=== PATIENT | female | born 1950 | race Caucasian/White ===

== ENCOUNTER 2017-10-19 16:57 | Inpatient (IN) | payer MEDICARE, BC ==
[~2017-10-19] VITALS: Ht 175.3 cm; Wt 79.4 kg
[2017-10-19] MEDS ORDERED: IBUPROFEN 600 MG TABLET PO ONE ×2 (17:11→17:30)
[2017-10-19] MEDS ORDERED: ACETAMINOPHEN ES 500 MG TABLET ONE (17:11)
[2017-10-19] MEDS ORDERED: ACETAMINOPHEN ES 500 MG TABLET PO ONE (17:30)
[2017-10-19] MEDS ORDERED: MORPHINE SULFATE INJ 2 MG/ML DISP.SYRIN IV ONE (17:30)
[2017-10-19] MEDS ORDERED: IV NS 0.9% 1,000 ML BAG IV ONE ×3 (17:30→21:00)
[2017-10-19] MEDS ORDERED: ONDANSETRON HCL/PF 4 MG/2 ML VIAL IV ONE (17:30)
[2017-10-19] MEDS ORDERED: FOLI1TAB16 PO (17:34)
[2017-10-19] MEDS ORDERED: ROPI0.5T PO (17:34)
[2017-10-19] MEDS ORDERED: FURO-144 PO (17:34)
[2017-10-19] MEDS ORDERED: ETAN50DI2 SQ (17:34)
[2017-10-19] MEDS ORDERED: CYCL30DR EACHEYE (17:34)
[2017-10-19] MEDS ORDERED: LEFL10TA PO (17:34)
[2017-10-19] MEDS ORDERED: AMLO5TAB2 PO (17:34)
[2017-10-19] MEDS ORDERED: FENT1PAT6 TD (17:34)
[2017-10-19] MEDS ORDERED: IBUP-1955 PO (17:34)
[2017-10-19] MEDS ORDERED: PROG100C15 PO (17:34)
[2017-10-19] MEDS ORDERED: CITA40TA11 PO (17:34)
[2017-10-19] MEDS ORDERED: ATOR40TA PO (17:34)
[2017-10-19] MEDS ORDERED: ERGO500014 PO (17:34)
[2017-10-19] MEDS ORDERED: OMEP20TA5 PO (17:34)
[2017-10-19] MEDS ORDERED: VALS80TA2 PO (17:34)
[2017-10-19] MEDS ORDERED: OXYC-133 PO (17:34)
[2017-10-19] MEDS ORDERED: TOPI25TA PO (17:34)
[2017-10-19] MEDS ORDERED: VENL150C2 PO (17:34)
[2017-10-19] MEDS ORDERED: ESTR0.623 PO (17:34)
[2017-10-19] MEDS ORDERED: BUPR-96 PO (17:34)
[2017-10-19] MEDS ORDERED: POTA10CA43 PO (17:34)
--- NOTE | 2017-10-19 17:40 | NUR ---
US TECH AT BS.
[2017-10-19 17:43] LABS: HEMATOCRIT 31 % (33-45); HEMOGLOBIN 9.6 g/dL (11.5-14.8); LYMPHOCYTES # (AUTO) 0.5 /CMM (0.8-4.8); LYMPHOCYTES % (AUTO) 2.7 % (20.0-44.0); MEAN CORPUSCULAR HEMOGLOBIN 24 PG (26.0-33.0); MEAN CORPUSCULAR HGB CONC 31 g/dl (31.0-36.0); MEAN CORPUSCULAR VOLUME 76 fL (82-100); MONOCYTES % (AUTO) 5.8 % (2.0-12.0); NEUTROPHILS % (AUTO) 91.5 % (43.0-81.0); PLATELET COUNT (AUTO) 457 /CMM (150-450); RDW COEFFICIENT OF VARIATION 19.2 (11.5-15.0); RED BLOOD CELL COUNT(AUTO) 4.04 MIL/uL (4.0-5.2); WHITE BLOOD COUNT (AUTO) 17.5 K/uL (4.3-11.0)
[2017-10-19 17:52] LABS: CALCIUM, SERUM 8.9 mg/dL (8.5-10.1); CARBON DIOXIDE 29 mmol/L (21-32); CHLORIDE 97 mmol/L (98-107); GLUCOSE 117 mg/dL (74-106); POTASSIUM 3.9 mmol/L (3.5-5.1); SODIUM SERUM 133 mmol/L (136-145); UREA NITROGEN, BLOOD 15 mg/dL (7-18)
[2017-10-19 18:00] LABS: TROPONIN I < 0.017 ng/mL (0.00-0.056)
[2017-10-19 18:01] LABS: INR 1.07 (0.87-1.13)
[2017-10-19 18:04] LABS: LYMPHOCYTES % (MANUAL) 3 % (16-48); MONOCYTES % (MANUAL) 6 % (0-11.0); NEUTROPHILS % (MANUAL) 91 (42-76)
[2017-10-19 18:05] LABS: ALANINE AMINOTRANSFERASE 14 U/L (12-78); ALBUMIN 2.8 g/dL (3.4-5.0); ALKALINE PHOSPHATASE 147 U/L (46-116); ASPARTATE AMINOTRANSFERASE 20 U/L (15-37); B-TYPE NATRIURETIC PEPTIDE 4346 PG/ML (0-125); BILIRUBIN,DIRECT 0.2 mg/dL (0.0-0.2); BILIRUBIN,TOTAL 0.5 mg/dL (0.2-1.0); TOTAL PROTEIN, SERUM 7.5 g/dL (6.4-8.2)
[2017-10-19] MEDS ORDERED: PIPERACILLIN /TAZOBACTAM 3.375 G in IV D5W 50 ML IV ONE (18:30)
--- NOTE | 2017-10-19 18:33 | NUR ---
HILARY FROM HOME FOR LETHARGIC ON MULTIPLE PAIN MEDS. SEEN BY MD FOR EVAL. VSS. NOTED BLE SWELLING. PT AAOX3. IV ACCESS ENAMEL PULVERIZER. SAFETY AND COMFORT MEASURES PROVIDED. WILL MONITOR.
[2017-10-19 18:47] LABS: BILIRUBIN,URINE Negative (NEGATIVE); BLOOD, URINE Large Ery/uL (NEGATIVE); COLOR,URINE Yellow (YELLOW); KETONES,URINE Trace (NEGATIVE); LEUKOCYTE ESTERASE ,URINE Large (NEGATIVE); NITRITE, URINE Positive (NEGATIVE); PH,URINE 5.5 (5.0-8.0); PROTEIN,URINE 100 mg/dl (NEGATIVE); UGLUCOSE Negative (NEGATIVE)
[2017-10-19 18:52] LABS: APPEARANCE,URINE SLIGHTLY CLOUDY (CLEAR)
[2017-10-19 19:00] LABS: BACTERIA,URINE Many /HPF (None Seen); RBC,URINE 21-50 /HPF (0-2); SQUAMOUS EPITHELIAL CELL,UR Few /HPF (None Seen); WBC,URINE TOO NUMEROUS TO COUN /HPF (0-3)
[2017-10-19] MEDS ORDERED: FUROSEMIDE 40 MG/4 ML VIAL IV ONE (19:30)
[2017-10-19] MEDS ORDERED: ropiniROLE 0.5 MG TABLET PO SCH (19:30)
[2017-10-19] MEDS ORDERED: FUROSEMIDE 40 MG/4 ML VIAL ONE (19:45)
[2017-10-19] MEDS ORDERED: Medication Not On Formulary EA (Etanercept (Enbrel) 50 MG) SQ SCH (20:00)
[2017-10-19] MEDS ORDERED: IV NS 0.9% 1,000 ML IV SCH ×2 (20:00→20:15)
[2017-10-19] MEDS ORDERED: FENTANYL TD PATCH (50 MCG/HR) 50 MCG/HR PATCH.TD72 TD SCH ×2 (20:00→23:00)
[2017-10-19] MEDS ORDERED: ONDANSETRON HCL/PF 4 MG/2 ML VIAL IVP PRN ×2 (20:00→20:15)
[2017-10-19] MEDS ORDERED: ERGOCALCIFEROL (VITAMIN D 2) 50,000 UNIT CAPSULE PO SCH ×2 (20:00→20:15)
[2017-10-19] MEDS ORDERED: LEVOFLOXACIN 750 MG /D5W 150ML 150 ML IV SCH (20:00)
[2017-10-19] MEDS ORDERED: MORPHINE SULFATE INJ 2 MG/ML DISP.SYRIN IV PRN ×2 (20:00→20:15)
[2017-10-19] MEDS ORDERED: ACETAMINOPHEN 325 MG TABLET PO PRN (20:00)
[2017-10-19 20:40] LABS: IRON, SERUM 14 ug/dl (50-175); TOTAL IRON BINDING CAPACITY 256 ug/dl (250-450)
--- NOTE | 2017-10-19 21:21 | NUR ---
PLUG ASSEMBLER NOTES RECEIVED PT ON FROM ER NURSE ELADIO PARNELL. ON ROOM AIR, NO RESPIRATORY DISTRESS NOTED. PT IS A/OX4 WITH SPOUSE AT BEDSIDE. ON TELE MONITOR SR 75. IV ACCESS ON LEFT HAND G18 PATENT AND INTACT. SKIN CHECK DONE AND PROVIDED DRESSING. VITAL SIGNS STABLE. PT ORIENTED . WILL CONTINUE TO MONITOR PT CLOSELY.
[2017-10-19 21:23] VITALS: BP 122/55
--- NOTE | 2017-10-19 22:45 | NUR ---
SAFETY MANAGER NOTES PER FARIBA MASCORRO. START FENTANYL PATCH TODAY, FOR TWO DAYS THEN DC AFTER. THEN RESUME THE PREVIOUS DOSING.
--- NOTE | 2017-10-19 23:00 | NUR ---
COOKING CASING AND DRYING SUPERVISOR NOTES PER FARIBA MASCORRO D/C NS BOLUS 500ML SINCE PT HAD ONE LITER OF NS BOLUS IN ER. WILL CONTINUE TO MONITOR PT CLOSELY.
--- NOTE | 2017-10-19 23:19 | NUR ---
TANK BUILDER SUPERVISOR NOTES STILL WAITING FOR THE PHARMACIST TO VERIFY LEVOFLOXACIN
[2017-10-19] MEDS ORDERED: LEVOFLOXACIN 750 MG /D5W 150ML 150 ML IV ONE (23:45)
[2017-10-20] VITALS (7 sets, daily range): BP systolic 101–134; BP diastolic 60–71
--- NOTE | 2017-10-20 00:55 | NUR ---
INSPECTOR COLD WORKING NOTES CALLED FARIBA MASCORRO FOR PT HR OF 124 AND PT COMPLAINTS OF RESTLESS LEG SYNDROME. FARIBA MASCORRO ORDERED REQUIP 0.5MG ONE DOSE.
[2017-10-20] MEDS ORDERED: ropiniROLE 0.5 MG TABLET PO ONE (01:00)
[2017-10-20] MEDS ORDERED: MORPHINE SULFATE INJ 4 MG/ML DISP.SYRIN ONE (01:13)
--- NOTE | 2017-10-20 02:35 | NUR ---
WHEEL INSPECTOR NOTES PT GIVEN COLD COMPRESS FOR LEG PAIN.
[2017-10-20] MEDS: ACETAMINOPHEN 325 MG TABLET PO PRN (04:17)
--- NOTE | 2017-10-20 05:01 | NUR ---
REPAIR WEAVER NOTES PT HAD TEMP OF 100.5, TYLENOL AND COOLING MEASURES GIVEN. TEMPT WENT DOWN TO 100.1. FARIBA MASCORRO INFORMED. NO NEW ORDERS. WILL CONTINUE TO MONITOR PT CLOSELY.
--- NOTE | 2017-10-20 06:29 | NUR ---
EMERGENCY MEDICAL TECHNICIAN CLOSING NOTES NO ACUTE CHANGES NOTED DURING THE SHIFT, PROVIDED COMFORT AND SAFETY. TEMPT BEEN TRENDING DOWN. COOLING MEASURES DOWN. WILL ENDORSE TO THE AM NURSE FOR CONTINUITY OF CARE.
[2017-10-20] MEDS ORDERED: Medication Not On Formulary EA (Omeprazole 20 MG) PO SCH (07:00)
[2017-10-20] MEDS: VENLAFAXINE XR 150 MG CAP.SR.24H PO SCH (08:54)
[2017-10-20] MEDS: POTASSIUM CHLORIDE 10 MEQ TABLET.SA PO SCH ×2 (08:54→17:10)
[2017-10-20] MEDS: FUROSEMIDE 40 MG/4 ML VIAL IV SCH ×2 (08:54→17:10)
[2017-10-20] MEDS: PANTOPRAZOLE 40 MG VIAL IV SCH (08:54)
[2017-10-20] MEDS: ATORVASTATIN 40 MG TABLET PO SCH ×2 (08:55→09:00)
[2017-10-20] MEDS: ropiniROLE 0.5 MG TABLET PO SCH ×3 (08:56→17:09)
[2017-10-20] MEDS: AMLODIPINE BESYLATE 5 MG TABLET PO SCH ×2 (08:56→09:00)
[2017-10-20] MEDS: VALSARTAN 80 MG TABLET PO SCH ×2 (08:57→09:00)
[2017-10-20] MEDS ORDERED: AMLODIPINE BESYLATE 5 MG TABLET PO SCH (09:00)
[2017-10-20] MEDS ORDERED: ATORVASTATIN 40 MG TABLET PO SCH (09:00)
[2017-10-20] MEDS ORDERED: CITALOPRAM HYDROBROMIDE 20 MG TABLET PO SCH (09:00)
[2017-10-20] MEDS ORDERED: ropiniROLE 0.5 MG TABLET PO SCH (09:00)
[2017-10-20] MEDS ORDERED: FUROSEMIDE 40 MG TABLET PO SCH ×2 (09:00)
[2017-10-20] MEDS ORDERED: PANTOPRAZOLE 40 MG VIAL IV SCH (09:00)
[2017-10-20] MEDS ORDERED: Medication Not On Formulary EA (Cyclosporine (Restasis) 1 DROP) EACHEYE SCH (09:00)
[2017-10-20] MEDS ORDERED: VENLAFAXINE XR 150 MG CAP.SR.24H PO SCH (09:00)
[2017-10-20] MEDS ORDERED: VALSARTAN 80 MG TABLET PO SCH (09:00)
[2017-10-20] MEDS ORDERED: MORPHINE SULFATE INJ 4 MG/ML DISP.SYRIN IV PRN (09:00)
[2017-10-20] MEDS: CEFTRIAXONE 1 G in IV D5W 50 ML IV SCH (14:48)
[2017-10-20] MEDS: oxyCODONE/APAP (5/325 MG) 1 UDTAB TABLET PO PRN (15:09)
[2017-10-20] MEDS: ESTROGENS,CONJUGATED 0.625 MG TABLET PO SCH (17:08)
[2017-10-20] MEDS: BUPROPION XL 150 MG TAB.ER.24 PO SCH (17:08)
[2017-10-20] MEDS: FOLIC ACID 1 MG TABLET PO SCH (17:08)
[2017-10-20] MEDS: TOPIRAMATE 25 MG TABLET PO SCH (17:15)
[2017-10-20] MEDS: LEFLUNOMIDE 10 MG TABLET PO SCH (17:15)
[2017-10-20] MEDS ORDERED: ESTROGENS,CONJUGATED 0.625 MG TABLET PO SCH (18:00)
[2017-10-20] MEDS ORDERED: BUPROPION XL 150 MG TAB.ER.24 PO SCH (18:00)
[2017-10-20] MEDS ORDERED: FOLIC ACID 1 MG TABLET PO SCH (18:00)
[2017-10-20] MEDS ORDERED: LEFLUNOMIDE 10 MG TABLET PO SCH (18:00)
[2017-10-20] MEDS ORDERED: TOPIRAMATE 25 MG TABLET PO SCH (18:00)
--- NOTE | 2017-10-20 19:25 | NUR ---
SCREEN MAKING SUPERVISOR NOTES RECEIVED PT ON BED. A/O X4 ON ROOM AIR SATURATING WELL. ON TELE MONITOR SR 98. NO RESPIRATORY DISTRESS NOTED AT THIS TIME. IV ACCESS ON LEFT HAND G18 SALINE LOCK. IV ACCESS PATENT AND INTACT. NO SWELLING NOTED. HEAD OF BED ELEVATED. SIDE RAILS UP. CALL LIGHT WITHIN REACH. BED ALARM ON. WILL CONTINUE TO MONITOR PT CLOSELY.
[2017-10-20] MEDS ORDERED: LEVOFLOXACIN 750 MG /D5W 150ML 150 ML IV SCH (22:00)
[2017-10-21] VITALS (7 sets, daily range): BP systolic 114–178; BP diastolic 66–82
[2017-10-21] MEDS: ACETAMINOPHEN 325 MG TABLET PO PRN ×2 (00:06→19:55)
--- NOTE | 2017-10-21 00:20 | NUR ---
WATCH INSPECTOR NOTES PAGED DRILL BIT SHARPENER REGARDING BLOOD PRESSURE OF 172/82 AND PT COMPLAINING OF RESTLESS LEG SYNDROME. DRILL BIT SHARPENER ORDERED .1MG CLONIDINE PO ONCE AND REQUIP .5MG PO ONCE.
[2017-10-21] MEDS ORDERED: CLONIDINE HCL 0.1 MG TABLET PO ONE (00:30)
[2017-10-21] MEDS ORDERED: ropiniROLE 0.5 MG TABLET PO ONE (00:30)
--- NOTE | 2017-10-21 06:40 | NUR ---
MACHINE STRAW HAT PRESSER NOTES NO ACUTE CHANGES NOTED DURING THE SHIFT. PROVIDED COMFORT AND SAFETY. NO RESPIRATORY DISTRESS NOTED. WILL ENDORSE TO THE AM NURSE FOR CONTINUITY OF CARE.
[2017-10-21 07:28] LABS: CALCIUM, SERUM 9.2 mg/dL (8.5-10.1); MAGNESIUM 1.9 mg/dL (1.8-2.4); POTASSIUM 3.3 mmol/L (3.5-5.1)
--- NOTE | 2017-10-21 07:30 | NUR ---
HOLE FILLER INITIAL NOTES ASSISTED PT TO BR. PT IS A/OX4. EDEMA BLE NON PITTING. NOT IN PAIN OR ACUTE DISTRESS. PT IS ON ROOM AIR. VITAL SIGNS STABLE. ON TELE SR 95. SAFETY MEASURES IN PLACE. CALL LIGHT IN REACH. WILL CONT TO MONITOR.
[2017-10-21 08:07] LABS: HEMATOCRIT 29 % (33-45); HEMOGLOBIN 9.5 g/dL (11.5-14.8); MEAN CORPUSCULAR HEMOGLOBIN 25 PG (26.0-33.0); MEAN CORPUSCULAR HGB CONC 33 g/dl (31.0-36.0); MEAN CORPUSCULAR VOLUME 75 fL (82-100); PLATELET COUNT (AUTO) 396 /CMM (150-450); RDW COEFFICIENT OF VARIATION 17.8 (11.5-15.0); RED BLOOD CELL COUNT(AUTO) 3.86 MIL/uL (4.0-5.2); WHITE BLOOD COUNT (AUTO) 14.3 K/uL (4.3-11.0)
--- NOTE | 2017-10-21 08:30 | NUR ---
CARPET JOURNEYMAN NOTES PATIENT REFUSED DIOVAN AND NORVASC. PT AWARE THAT BP IS 153/71. PT SAID SHE IS NOT TAKING IT D/T SIDE EFFECTS. WILL FOLLOW UP WITH DR LUBA JACKSON
[2017-10-21] MEDS: ropiniROLE 0.5 MG TABLET PO SCH ×3 (08:37→16:14)
[2017-10-21] MEDS: PANTOPRAZOLE 40 MG VIAL IV SCH (08:37)
[2017-10-21] MEDS: FUROSEMIDE 40 MG/4 ML VIAL IV SCH ×2 (08:38→16:14)
[2017-10-21] MEDS: ATORVASTATIN 40 MG TABLET PO SCH (08:38)
[2017-10-21] MEDS: CITALOPRAM HYDROBROMIDE 20 MG TABLET PO SCH (08:38)
[2017-10-21] MEDS: VENLAFAXINE XR 150 MG CAP.SR.24H PO SCH (08:38)
[2017-10-21] MEDS: POTASSIUM CHLORIDE 10 MEQ TABLET.SA PO SCH ×2 (08:41→16:14)
[2017-10-21 08:43] LABS: LYMPHOCYTES % (MANUAL) 3 % (16-48)
[2017-10-21 08:44] LABS: MONOCYTES % (MANUAL) 3 % (0-11.0); NEUTROPHILS % (MANUAL) 94 (42-76)
[2017-10-21] MEDS: VALSARTAN 80 MG TABLET PO SCH (08:54)
[2017-10-21] MEDS: AMLODIPINE BESYLATE 5 MG TABLET PO SCH (08:55)
[2017-10-21] MEDS ORDERED: POTASSIUM CHLORIDE 20 MEQ TAB.PRT.SR PO SCH (10:00)
--- NOTE | 2017-10-21 10:58 | NUR ---
RN MEDICATION NOTES SEEN BY PHYSICAL THERAPIST. ABLE TO AMBULATE WITH WALKER. GAIT UNSTEADY AT THIS TIME. REQUIRES SUPERVISION/MINIMAL ASSISTANCE.
--- NOTE | 2017-10-21 12:05 | NUR ---
EARRING MAKER NOTES SEEN BY DR VERDUZCO. NOTIFIED THAT PT IS REFUSING DIOVAN AND NORVASC. SAID OK FOR PT TO BRING MED (IRBESARTAN) FROM HOME. ORDERED DVT PUMPS AND BLOOD CX X2.
[2017-10-21] MEDS: CEFTRIAXONE 1 G in IV D5W 50 ML IV SCH (13:21)
--- NOTE | 2017-10-21 15:00 | NUR ---
SPUD GRADER NOTE FAMILY AT BEDSIDE ,MEDS FROM HOME SENT TO PHARMACY, ALL NEEDS ATTENDED NOT IN ACUTE DISTRES
[2017-10-21] MEDS: LEFLUNOMIDE 10 MG TABLET PO SCH (17:27)
[2017-10-21] MEDS: ESTROGENS,CONJUGATED 0.625 MG TABLET PO SCH (17:28)
[2017-10-21] MEDS: TOPIRAMATE 25 MG TABLET PO SCH (17:29)
[2017-10-21] MEDS: BUPROPION XL 150 MG TAB.ER.24 PO SCH (17:30)
[2017-10-21] MEDS: FOLIC ACID 1 MG TABLET PO SCH (17:30)
--- NOTE | 2017-10-21 18:19 | NUR ---
MANAGER DEMAND ENDING NOTES PT AWAKE WITH FAMILY AT BS. NOT IN DISTRESS. SAFETY MEASURES MAINTAINED. ALL NEEDS MAINTAINED.
[2017-10-21] MEDS: oxyCODONE/APAP (5/325 MG) 1 UDTAB TABLET PO PRN (21:56)
[2017-10-22] VITALS: BP 106/61
[2017-10-22 04:00] VITALS: BP 95/62
[2017-10-22 06:23] LABS: BASOPHILS % (AUTO) 0.3 % (0.0-2.0); HEMATOCRIT 28 % (33-45); HEMOGLOBIN 9.1 g/dL (11.5-14.8); LYMPHOCYTES # (AUTO) 0.7 /CMM (0.8-4.8); LYMPHOCYTES % (AUTO) 8.4 % (20.0-44.0); MEAN CORPUSCULAR HEMOGLOBIN 24 PG (26.0-33.0); MEAN CORPUSCULAR HGB CONC 32 g/dl (31.0-36.0); MEAN CORPUSCULAR VOLUME 75 fL (82-100); MONOCYTES # (AUTO) 1.2 /CMM (0.1-1.30); MONOCYTES % (AUTO) 14.5 % (2.0-12.0); NEUTROPHILS # (AUTO) 6.4 /CMM (1.8-8.9); NEUTROPHILS % (AUTO) 75.8 % (43.0-81.0); PLATELET COUNT (AUTO) 354 /CMM (150-450); RDW COEFFICIENT OF VARIATION 18.4 (11.5-15.0); RED BLOOD CELL COUNT(AUTO) 3.74 MIL/uL (4.0-5.2); WHITE BLOOD COUNT (AUTO) 8.4 K/uL (4.3-11.0)
[2017-10-22 06:44] LABS: POTASSIUM 3.2 mmol/L (3.5-5.1)
--- NOTE | 2017-10-22 06:58 | NUR ---
RN NOTE PATIENT RESTED WELL AT NIGHT, STABLE, AFEBRILE, NO DISTRESS NOTED, ALL SAFETY MEASURES TAKEN, WILL ENDORSE TO AM SHIFT TO CONTINUE CARE
--- NOTE | 2017-10-22 07:25 | NUR ---
CHANCERY CLERK INITIAL NOTES Report received at bedside. Patient received in bed, awake and resting. Alert and oriented x4. Denies any pain at the moment. No SOB/labored breathing noted and reported. Not in any type of distress. Afebrile. On IV antibiotic for pneumonia. Safety measures in place. Will continue to monitor and assess patient. Tele: Sinus Rhythm 80s
[2017-10-22 08:00] VITALS: BP 135/70
--- NOTE | 2017-10-22 08:09 | NUR ---
WOUND CARE CONSULT: PT PRESENTS WITH LEFT POSTERIOR HEEL/ANKLE WOUND, PRESENT ON ADMISSION. PT STATES HAD RUPTURED ACHILLES TENDON AND HAS BEEN FOLLOWED BY SURGEON. PT IS INDEPENDENT WITH BED MOBILITY AND CONTINENT. RECOMMEND DPM CONSULT. WILL SEE PRN. JANG IN AGREEMENT WITH PLAN OF CARE. Addendum: 10/22/17 at 0810 by JIMMY HUIZAR WNDNU Amended: Links added.
[2017-10-22] MEDS: CITALOPRAM HYDROBROMIDE 20 MG TABLET PO SCH (08:39)
[2017-10-22] MEDS: PANTOPRAZOLE 40 MG VIAL IV SCH (08:39)
[2017-10-22] MEDS: FUROSEMIDE 40 MG/4 ML VIAL IV SCH (08:39)
[2017-10-22] MEDS: AMLODIPINE BESYLATE 5 MG TABLET PO SCH (08:42)
[2017-10-22] MEDS: POTASSIUM CHLORIDE 10 MEQ TABLET.SA PO SCH (08:43)
[2017-10-22] MEDS: ropiniROLE 0.5 MG TABLET PO SCH ×2 (08:43→13:16)
[2017-10-22] MEDS: VENLAFAXINE XR 150 MG CAP.SR.24H PO SCH (08:43)
[2017-10-22] MEDS: ATORVASTATIN 40 MG TABLET PO SCH (08:43)
[2017-10-22] MEDS ORDERED: IRBESARTAN 300 MG PO SCH (09:00)
[2017-10-22] MEDS ORDERED: SULF1TAB48 PO (11:25)
[2017-10-22 12:00] VITALS: BP 115/74
[2017-10-22] MEDS ORDERED: POTASSIUM CHLORIDE 20 MEQ TAB.PRT.SR PO SCH (12:00)
[2017-10-22 13:00] VITALS: BP 115/74
--- NOTE | 2017-10-22 13:30 | NUR ---
FRAME BENDERTUFTER HAND NOTES Patient remained in bed, awake and resting. Alert and oriented x4. Denies any pain at the moment. No SOB/labored breathing noted and reported. Not in any type of distress. Afebrile. MD assessed patient, medically stable and okay to discharge. Discharge instructions provided including follow up with PMD in 1 week and follow up with wound care doctor for left heel pressure ulcer. Patient verbalized understanding. Belongings and medication from pharmacy returned to patient with signature on chart. Yoan () at bedside to take patient home. All needs anticipated and met. All questions and concerns addressed. 115/74 97 18 97.9 99%RA
[2017-10-22] MEDS: CEFTRIAXONE 1 G in IV D5W 50 ML IV SCH (14:00)
--- NOTE | 2017-10-22 14:11 | NUR ---
INSPECTOR AIDEWEBFOCUS DEVELOPER NURSE Patient was transported by nurse acute care certified nursing assistant to car via wheelchair. Patient is in stable condition.
--- NOTE | 2017-10-22 14:45 | NUR ---
WEB FEEDER - NON ADMIN NOTES Gwendolyn non-admin - patient discharged home with antibiotic by mouth.
== END 2017-10-22 14:40 | disposition home or self-care (01) | DRG 871 ==
LOC: ER 16:59 → TELE1 20:50
PROVIDERS: ADMIT Registered Nurse; ATTEND Registered Nurse
DX: A41.50 Gram-negative sepsis, unspecified (principal); G92 Toxic encephalopathy; E87.1 Hypo-osmolality and hyponatremia; E44.1 Mild protein-calorie malnutrition; N39.0 Urinary tract infection, site not specified; T81.31XA Disruption of external operation (surgical) wound, not elsewhere classified, initial encounter; I11.0 Hypertensive heart disease with heart failure; I50.9 Heart failure, unspecified; F32.9 Major depressive disorder, single episode, unspecified; Z98.890 Other specified postprocedural states; Z79.899 Other long term (current) drug therapy; G25.81 Restless legs syndrome; F41.9 Anxiety disorder, unspecified; D63.8 Anemia in other chronic diseases classified elsewhere; G43.909 Migraine, unspecified, not intractable, without status migrainosus; B96.89 Other specified bacterial agents as the cause of diseases classified elsewhere; K21.9 Gastro-esophageal reflux disease without esophagitis; Z87.440 Personal history of urinary (tract) infections; G89.4 Chronic pain syndrome; I87.8 Other specified disorders of veins; L40.50 Arthropathic psoriasis, unspecified; Y83.9 Surgical procedure, unspecified as the cause of abnormal reaction of the patient, or of later complication, without mention of misadventure at the time of the procedure; Y92.009 Unspecified place in unspecified non-institutional (private) residence as the place of occurrence of the external cause
CPT/HCPCS: 36415; 71045-TC; 80048-TC; 80076-TC; 81000-TC; 83540-TC; 83605-TC; 83735-TC; 83880; 84100-TC; 84484-TC; 85025-TC; 85730-TC; 87040-TC; 87081-TC; 87086-TC; 87186-TC; 93970-TC; A4606; A6402; C9113; J0696; J1940; J1956; J2270; J2405; J2543; J7030; J7060; Z7610

== ENCOUNTER 2021-07-25 10:00 | Outpatient (CLI) | payer MEDICARE, BC ==
[~2021-07-25 10:00] MED LIST: AMLO-212 PO; ATOR40TA PO; BUPR-96 PO; CITA40TA11 PO; CYCL30DR EACHEYE; ERGO500014 PO; ESTR0.623 PO; ETAN50SY SQ; FENT1PAT6 TD; FOLI1TAB16 PO; FURO-144 PO; IBUP-1955 PO; LEFL10TA PO; OMEP20TA5 PO; OXYC-133 PO; POTA10CA43 PO; PROG100C15 PO; ROPI0.5T PO; SULF1TAB48 PO; TOPI25TA PO; VALS80TA2 PO; VENL150C2 PO
[2021-07-25] MEDS ORDERED: COLLAGENASE 5 GM TUBE UD TP ONE (10:51)
== END 2021-07-25 23:59 | disposition home health service (06) ==
LOC: WOU 10:00
PROVIDERS: ATTEND Podiatrist Foot & Ankle Surgery
DX: L89.623 Pressure ulcer of left heel, stage 3 (principal); I87.311 Chronic venous hypertension (idiopathic) with ulcer of right lower extremity; L97.313 Non-pressure chronic ulcer of right ankle with necrosis of muscle; I87.2 Venous insufficiency (chronic) (peripheral); T81.89XA Other complications of procedures, not elsewhere classified, initial encounter; Z96.651 Presence of right artificial knee joint; I10 Essential (primary) hypertension
CPT/HCPCS: 11042; 11043

== ENCOUNTER 2021-08-01 10:30 | Outpatient (CLI) | payer MEDICARE, BC ==
[2021-08-01] MEDS ORDERED: LIDOCAINE SOLN 4% 50 ML BOTTLE ONE (10:36)
[2021-08-01] MEDS ORDERED: OLME40TA18 PO (12:47)
[2021-08-01] MEDS ORDERED: CHOL100043 PO (12:47)
== END 2021-08-01 23:59 | disposition home health service (06) ==
LOC: WOU 10:30
PROVIDERS: ATTEND Surgery
DX: L89.623 Pressure ulcer of left heel, stage 3 (principal); L03.116 Cellulitis of left lower limb; I87.311 Chronic venous hypertension (idiopathic) with ulcer of right lower extremity; L97.313 Non-pressure chronic ulcer of right ankle with necrosis of muscle; T81.89XA Other complications of procedures, not elsewhere classified, initial encounter; I10 Essential (primary) hypertension
CPT/HCPCS: 11042; 11043

== ENCOUNTER 2021-08-01 11:41 | Inpatient (IN) | payer MEDICARE, BC ==
[~2021-08-01] VITALS: Ht 175.3 cm; Wt 94.3 kg
[2021-08-01] MEDS ORDERED: PIPERACILLIN /TAZOBACTAM 3.375 G in IV D5W 50 ML IV ONE (12:00)
[2021-08-01] MEDS ORDERED: VANCOMYCIN 1 GM in IV D5W 250 ML IV ONE (12:00)
[2021-08-01 12:23] LABS: BASOPHILS % (AUTO) 0.3 % (0.0-2.0); EOSINOPHILS % (AUTO) 0.3 % (0.0-6.0); HEMATOCRIT 35 % (33-45); HEMOGLOBIN 11.6 g/dL (11.5-14.8); LYMPHOCYTES % (AUTO) 5.4 % (20.0-44.0); MEAN CORPUSCULAR HGB CONC 33 g/dl (31.0-36.0); MEAN CORPUSCULAR VOLUME 86 fL (82-100); MONOCYTES # (AUTO) 1.1 K/uL (0.1-1.30); MONOCYTES % (AUTO) 6.5 % (2.0-12.0); NEUTROPHILS # (AUTO) 15.3 K/uL (1.8-8.9); NEUTROPHILS % (AUTO) 87.5 % (43.0-81.0); PLATELET COUNT (AUTO) 346 K/uL (150-450); RED BLOOD CELL COUNT(AUTO) 4.06 MIL/uL (4.0-5.2); WHITE BLOOD COUNT (AUTO) 17.5 K/uL (4.3-11.0)
[2021-08-01 12:37] LABS: CALCIUM, SERUM 9.6 mg/dL (8.5-10.1); CARBON DIOXIDE 29 mmol/L (21-32); CHLORIDE 100 mmol/L (98-107); CREATININE 1.2 mg/dL (0.6-1.3); GLUCOSE 95 mg/dL (74-106); POTASSIUM 3.5 mmol/L (3.5-5.1); SODIUM SERUM 136 mmol/L (136-145); UREA NITROGEN, BLOOD 18 mg/dL (7-18)
[2021-08-01 12:43] LABS: ALANINE AMINOTRANSFERASE 15 U/L (12-78); ALBUMIN 3.3 g/dL (3.4-5.0); ALKALINE PHOSPHATASE 135 U/L (46-116); ASPARTATE AMINOTRANSFERASE 11 U/L (15-37); BILIRUBIN,DIRECT 0.2 mg/dL (0.0-0.2); BILIRUBIN,TOTAL 0.6 mg/dL (0.2-1.0); TOTAL PROTEIN, SERUM 8.4 g/dL (6.4-8.2)
[2021-08-01] MEDS ORDERED: CHOL100043 PO (12:47)
[2021-08-01] MEDS ORDERED: OLME40TA18 PO (12:47)
[2021-08-01 14:49] LABS: BILIRUBIN,URINE NEGATIVE (NEGATIVE); COLOR,URINE YELLOW (YELLOW); LEUKOCYTE ESTERASE ,URINE NEGATIVE (NEGATIVE); NITRITE, URINE NEGATIVE (NEGATIVE); PROTEIN,URINE 30 mg/dl (NEGATIVE); UGLUCOSE NEGATIVE (NEGATIVE); UROBILINOGEN,URINE 0.2 EU/dL (0.2)
[2021-08-01 15:33] LABS: RBC,URINE 21-50 /HPF (0-2); WBC,URINE 0-2 /HPF (0-3)
[2021-08-01 15:34] LABS: BACTERIA,URINE RARE /HPF (None Seen); HYALINE CASTS, URINE Few /LPF (None Seen); MUCUS,URINE Few /LPF (None Seen)
[2021-08-01] MEDS ORDERED: MAG HYDROX/AL HYDROX/SIMETH 30 ML UDC PO PRN (19:00)
[2021-08-01] MEDS ORDERED: ACETAMINOPHEN 325 MG TABLET PO PRN (19:00)
[2021-08-01] MEDS ORDERED: ONDANSETRON HCL/PF 4 MG/2 ML VIAL IVP PRN (19:00)
[2021-08-01] MEDS ORDERED: Z GUARD REMEDY 4 OZ OINT TP PRN (19:00)
[2021-08-01 20:00] VITALS: BP_SYST 134; BP_SYST 140; BP_DIAS 69; BP_DIAS 83
[2021-08-01] MEDS ORDERED: ZOLPIDEM TARTRATE 5 MG TABLET PO PRN (22:00)
[2021-08-01] MEDS ORDERED: MAGNESIUM HYDROXIDE 30 ML UDC PO PRN (22:00)
[2021-08-01] MEDS ORDERED: oxyCODONE IR immediate release 5 MG PO PRN (23:00)
[2021-08-01] MEDS ORDERED: oxyCODONE/APAP (5/325 MG) 1 UDTAB TABLET PO PRN (23:00)
[2021-08-02] MEDS: ZOSYN IVPB 3.375 G in IV D5W 50ml IV SCH ×4 (00:18→17:37)
[2021-08-02] MEDS: ropiniROLE 0.5 MG TABLET PO SCH ×6 (00:18→20:09)
[2021-08-02 06:59] LABS: BASOPHILS % (AUTO) 0.4 % (0.0-2.0); EOSINOPHILS % (AUTO) 2.1 % (0.0-6.0); HEMATOCRIT 32 % (33-45); HEMOGLOBIN 10.8 g/dL (11.5-14.8); MEAN CORPUSCULAR HGB CONC 34 g/dl (31.0-36.0); MEAN CORPUSCULAR VOLUME 85 fL (82-100); MONOCYTES % (AUTO) 11.9 % (2.0-12.0); NEUTROPHILS # (AUTO) 6.2 K/uL (1.8-8.9); NEUTROPHILS % (AUTO) 73.6 % (43.0-81.0); PLATELET COUNT (AUTO) 299 K/uL (150-450); WHITE BLOOD COUNT (AUTO) 8.4 K/uL (4.3-11.0)
[2021-08-02 07:04] LABS: CALCIUM, SERUM 9.2 mg/dL (8.5-10.1); CARBON DIOXIDE 26 mmol/L (21-32); CHLORIDE 104 mmol/L (98-107); CREATININE 0.9 mg/dL (0.6-1.3); GLUCOSE 95 mg/dL (74-106); MAGNESIUM 2.4 mg/dL (1.8-2.4); POTASSIUM 3.5 mmol/L (3.5-5.1); SODIUM SERUM 138 mmol/L (136-145); UREA NITROGEN, BLOOD 14 mg/dL (7-18)
[2021-08-02 07:24] LABS: CHOLESTEROL 167 mg/dL (<200); HDL CHOLESTEROL 54 mg/dL (40-60); LDL 91 mg/dL (0-99); TRIGLYCERIDES 67 mg/dL (30-150)
[2021-08-02 08:00] VITALS: BP 150/66
[2021-08-02] MEDS: PANTOPRAZOLE 40 MG TABLET.DR PO SCH (08:47)
[2021-08-02] MEDS: FUROSEMIDE 40 MG TABLET PO SCH (08:48)
[2021-08-02] MEDS: VENLAFAXINE XR 75 MG CAP.SR.24H PO SCH (08:48)
[2021-08-02] MEDS: CHOLECALCIFEROL 1,000 UNIT TABLET (VIT D3) PO SCH (08:48)
[2021-08-02] MEDS: POTASSIUM CHLORIDE 10 MEQ TABLET.SA PO SCH (08:48)
[2021-08-02] MEDS: LOSARTAN POTASSIUM 50 MG TABLET PO SCH (08:49)
[2021-08-02] MEDS: VANCOMYCIN 1.25 GM in IV D5W 250 ML IV SCH (08:53)
[2021-08-02] MEDS ORDERED: Medication Not On Formulary EA (Omeprazole 20 MG) PO SCH (09:00)
[2021-08-02 16:20] VITALS: BP 156/90
[2021-08-02] MEDS: ESTROGENS,CONJUGATED 0.625 MG TABLET PO SCH (17:36)
[2021-08-02] MEDS: FOLIC ACID 1 MG TABLET PO SCH (17:36)
[2021-08-02] MEDS: [UNRECOGNIZED DRUG - OTHER] PO SCH (17:37)
[2021-08-02 20:00] VITALS: BP 154/86
[2021-08-03] MEDS: ZOSYN IVPB 3.375 G in IV D5W 50ml IV SCH ×3 (00:09→11:32)
[2021-08-03] MEDS: ropiniROLE 0.5 MG TABLET PO SCH ×5 (00:09→16:59)
[2021-08-03 07:17] LABS: BASOPHILS # (AUTO) 0.1 K/uL (0.0-0.2); BASOPHILS % (AUTO) 0.8 % (0.0-2.0); EOSINOPHILS % (AUTO) 6.4 % (0.0-6.0); HEMATOCRIT 34 % (33-45); HEMOGLOBIN 11.1 g/dL (11.5-14.8); LYMPHOCYTES # (AUTO) 1.1 K/uL (0.8-4.8); LYMPHOCYTES % (AUTO) 17.8 % (20.0-44.0); MEAN CORPUSCULAR HGB CONC 32 g/dl (31.0-36.0); MEAN CORPUSCULAR VOLUME 86 fL (82-100); MONOCYTES # (AUTO) 0.9 K/uL (0.1-1.30); MONOCYTES % (AUTO) 14.4 % (2.0-12.0); NEUTROPHILS # (AUTO) 3.8 K/uL (1.8-8.9); NEUTROPHILS % (AUTO) 60.6 % (43.0-81.0); PLATELET COUNT (AUTO) 331 K/uL (150-450); WHITE BLOOD COUNT (AUTO) 6.3 K/uL (4.3-11.0)
[2021-08-03 07:46] LABS: ALANINE AMINOTRANSFERASE 16 U/L (12-78); ALBUMIN 2.7 g/dL (3.4-5.0); ALKALINE PHOSPHATASE 111 U/L (46-116); ASPARTATE AMINOTRANSFERASE 14 U/L (15-37); BILIRUBIN,TOTAL 0.5 mg/dL (0.2-1.0); CALCIUM, SERUM 9.2 mg/dL (8.5-10.1); CARBON DIOXIDE 27 mmol/L (21-32); CHLORIDE 105 mmol/L (98-107); CREATININE 1.1 mg/dL (0.6-1.3); GLUCOSE 116 mg/dL (74-106); MAGNESIUM 2.3 mg/dL (1.8-2.4); PHOSPHORUS 3.5 mg/dL (2.5-4.9); POTASSIUM 3.4 mmol/L (3.5-5.1); SODIUM SERUM 139 mmol/L (136-145); TOTAL PROTEIN, SERUM 7.4 g/dL (6.4-8.2); UREA NITROGEN, BLOOD 14 mg/dL (7-18)
[2021-08-03] MEDS: PANTOPRAZOLE 40 MG TABLET.DR PO SCH (08:01)
[2021-08-03] MEDS: VANCOMYCIN 1.25 GM in IV D5W 250 ML IV SCH (08:03)
[2021-08-03] MEDS: CHOLECALCIFEROL 1,000 UNIT TABLET (VIT D3) PO SCH (08:09)
[2021-08-03] MEDS: VENLAFAXINE XR 75 MG CAP.SR.24H PO SCH (08:09)
[2021-08-03] MEDS: FUROSEMIDE 40 MG TABLET PO SCH (08:09)
[2021-08-03] MEDS: POTASSIUM CHLORIDE 10 MEQ TABLET.SA PO SCH (08:10)
[2021-08-03] MEDS: LOSARTAN POTASSIUM 50 MG TABLET PO SCH (08:10)
[2021-08-03] MEDS ORDERED: CEFTRIAXONE 1 G in IV D5W 50 ML IV SCH (15:00)
[2021-08-03 16:15] VITALS: BP 118/85
[2021-08-03] MEDS: ESTROGENS,CONJUGATED 0.625 MG TABLET PO SCH (16:59)
[2021-08-03] MEDS: [UNRECOGNIZED DRUG - OTHER] PO SCH (16:59)
[2021-08-03] MEDS: FOLIC ACID 1 MG TABLET PO SCH (16:59)
[2021-08-04] MEDS ORDERED: FENTANYL TD PATCH (25 MCG/HR) 25 MCG/HR PATCH.TD72 TD SCH (12:00)
== END 2021-08-03 18:30 | disposition home health service (06) | DRG 602 ==
LOC: ER 11:44 → TRANSITION 13:10 → MED 18:45
PROVIDERS: ADMIT Student in an Organized Health Care Education/Training Program
DX: L03.116 Cellulitis of left lower limb (principal); L89.623 Pressure ulcer of left heel, stage 3; E44.1 Mild protein-calorie malnutrition; L97.329 Non-pressure chronic ulcer of left ankle with unspecified severity; G43.909 Migraine, unspecified, not intractable, without status migrainosus; K21.9 Gastro-esophageal reflux disease without esophagitis; I10 Essential (primary) hypertension; F32.A Depression, unspecified; I87.8 Other specified disorders of veins; G89.4 Chronic pain syndrome; G25.81 Restless legs syndrome; Z98.890 Other specified postprocedural states; F41.9 Anxiety disorder, unspecified; Z79.899 Other long term (current) drug therapy; I87.2 Venous insufficiency (chronic) (peripheral); S91.002A Unspecified open wound, left ankle, initial encounter; X58.XXXA Exposure to other specified factors, initial encounter; Y92.9 Unspecified place or not applicable
CPT/HCPCS: 36415; 71045-TC; 80048-TC; 80053-TC; 80061-TC; 80076-TC; 80202-TC; 81001; 83605-TC; 83735-TC; 84100-TC; 84484-TC; 85025-TC; 85730-TC; 87040-TC; 87081-TC; 87086-TC; 93971-TC; A4217; A6253; A6403; G0378; J0696; J2543; J3370; J7050; J7060

== ENCOUNTER 2021-08-11 10:00 | Outpatient (CLI) | payer MEDICARE, BC ==
[~2021-08-11 10:00] MED LIST changes: -AMLO-212 PO; -ATOR40TA PO; -BUPR-96 PO; +CHOL100043 PO; -CITA40TA11 PO; -CYCL30DR EACHEYE; -ERGO500014 PO; -ETAN50SY SQ; -LEFL10TA PO; +OLME40TA18 PO; -SULF1TAB48 PO; -TOPI25TA PO; -VALS80TA2 PO
[2021-08-11] MEDS ORDERED: LIDOCAINE SOLN 4% 50 ML BOTTLE ONE (10:56)
[2021-08-11] MEDS ORDERED: UREA 10% -AHA 4% CREAM 57 GM TUBE ONE (11:29)
[2021-08-11] MEDS ORDERED: CADEXOMER IODINE UD 5 GM TUBE ONE (11:51)
== END 2021-08-11 23:59 | disposition home health service (06) ==
LOC: WOU 10:00
PROVIDERS: ATTEND Podiatrist Foot & Ankle Surgery
DX: L89.623 Pressure ulcer of left heel, stage 3 (principal); I87.311 Chronic venous hypertension (idiopathic) with ulcer of right lower extremity; L97.312 Non-pressure chronic ulcer of right ankle with fat layer exposed; I87.2 Venous insufficiency (chronic) (peripheral); T81.89XA Other complications of procedures, not elsewhere classified, initial encounter; Z96.651 Presence of right artificial knee joint
CPT/HCPCS: 11042; 11043

== ENCOUNTER 2021-08-18 10:25 | Outpatient (CLI) | payer MEDICARE, BC ==
[2021-08-18] MEDS ORDERED: UREA 10% -AHA 4% CREAM 57 GM TUBE ONE (11:16)
[2021-08-18] MEDS ORDERED: LIDOCAINE SOLN 4% 50 ML BOTTLE ONE (11:17)
== END 2021-08-18 23:59 | disposition home health service (06) ==
LOC: WOU 10:25
PROVIDERS: ATTEND Podiatrist Foot & Ankle Surgery
DX: L89.623 Pressure ulcer of left heel, stage 3 (principal); L89.624 Pressure ulcer of left heel, stage 4; I87.311 Chronic venous hypertension (idiopathic) with ulcer of right lower extremity; L97.312 Non-pressure chronic ulcer of right ankle with fat layer exposed; T81.89XA Other complications of procedures, not elsewhere classified, initial encounter; I87.2 Venous insufficiency (chronic) (peripheral)
CPT/HCPCS: 11043; 11042; 87075; 87070; A6407

== ENCOUNTER 2021-08-25 10:35 | Outpatient (CLI) | payer MEDICARE, BC ==
[2021-08-25] MEDS ORDERED: UREA 10% -AHA 4% CREAM 57 GM TUBE ONE (11:39)
== END 2021-08-25 23:59 | disposition home health service (06) ==
LOC: WOU 10:35
PROVIDERS: ATTEND Podiatrist Foot & Ankle Surgery
DX: I87.311 Chronic venous hypertension (idiopathic) with ulcer of right lower extremity (principal); L97.312 Non-pressure chronic ulcer of right ankle with fat layer exposed; L89.624 Pressure ulcer of left heel, stage 4; L89.626 Pressure-induced deep tissue damage of left heel; T81.89XD Other complications of procedures, not elsewhere classified, subsequent encounter; I87.2 Venous insufficiency (chronic) (peripheral); I10 Essential (primary) hypertension; Z96.651 Presence of right artificial knee joint
CPT/HCPCS: 11042; 11043

== ENCOUNTER 2021-09-01 14:00 | Outpatient (CLI) | payer MEDICARE, BC ==
[~2021-09-01 14:00] MED LIST changes: +LIDOCAINE SOLN 4% 50 ML BOTTLE ONE
== END 2021-09-01 23:59 | disposition home health service (06) ==
LOC: WOU 14:00
PROVIDERS: ATTEND Podiatrist Foot & Ankle Surgery
DX: I87.311 Chronic venous hypertension (idiopathic) with ulcer of right lower extremity (principal); L97.312 Non-pressure chronic ulcer of right ankle with fat layer exposed; L89.624 Pressure ulcer of left heel, stage 4; T81.89XA Other complications of procedures, not elsewhere classified, initial encounter; I87.2 Venous insufficiency (chronic) (peripheral)
CPT/HCPCS: 11043; 11042; A6253

== ENCOUNTER 2021-09-08 10:30 | Outpatient (CLI) | payer MEDICARE, BC ==
[~2021-09-08 10:30] MED LIST changes: -LIDOCAINE SOLN 4% 50 ML BOTTLE ONE
[2021-09-08] MEDS ORDERED: LIDOCAINE SOLN 4% 50 ML BOTTLE ONE ×2 (10:43→11:00)
== END 2021-09-08 23:59 | disposition home health service (06) ==
LOC: WOU 10:30
PROVIDERS: ATTEND Podiatrist Foot & Ankle Surgery
DX: I87.311 Chronic venous hypertension (idiopathic) with ulcer of right lower extremity (principal); L97.312 Non-pressure chronic ulcer of right ankle with fat layer exposed; L89.624 Pressure ulcer of left heel, stage 4; T81.89XA Other complications of procedures, not elsewhere classified, initial encounter; L89.626 Pressure-induced deep tissue damage of left heel; Z96.651 Presence of right artificial knee joint
CPT/HCPCS: 11043; 11042; A6253; A6210; A6407

== ENCOUNTER 2021-09-15 10:22 | Outpatient (CLI) | payer MEDICARE, BC ==
[2021-09-15] MEDS ORDERED: CLOTRIMAZOLE 1% 15 GM TUBE TP ONE (11:15)
[2021-09-15] MEDS ORDERED: UREA 10% -AHA 4% CREAM 57 GM TUBE ONE (11:15)
== END 2021-09-15 23:59 | disposition home health service (06) ==
LOC: WOU 10:22
PROVIDERS: ATTEND Podiatrist Foot & Ankle Surgery
DX: I87.311 Chronic venous hypertension (idiopathic) with ulcer of right lower extremity (principal); L97.312 Non-pressure chronic ulcer of right ankle with fat layer exposed; L89.624 Pressure ulcer of left heel, stage 4; T81.89XA Other complications of procedures, not elsewhere classified, initial encounter
CPT/HCPCS: 11043; 11042; A6210; A6407

== ENCOUNTER 2021-09-22 10:50 | Outpatient (CLI) | payer MEDICARE, BC ==
[2021-09-22] MEDS ORDERED: LIDOCAINE SOLN 4% 50 ML BOTTLE ONE (11:04)
== END 2021-09-22 23:59 | disposition home health service (06) ==
LOC: WOU 10:50
PROVIDERS: ATTEND Podiatrist Foot & Ankle Surgery
DX: L89.624 Pressure ulcer of left heel, stage 4 (principal); I87.2 Venous insufficiency (chronic) (peripheral); I87.311 Chronic venous hypertension (idiopathic) with ulcer of right lower extremity; L97.318 Non-pressure chronic ulcer of right ankle with other specified severity; T81.89XA Other complications of procedures, not elsewhere classified, initial encounter; Z96.651 Presence of right artificial knee joint; Z98.1 Arthrodesis status; M06.9 Rheumatoid arthritis, unspecified; I10 Essential (primary) hypertension
CPT/HCPCS: 11043; 97597; A6210

== ENCOUNTER 2021-09-29 10:31 | Outpatient (CLI) | payer MEDICARE, BC ==
[2021-09-29] MEDS ORDERED: UREA 10% -AHA 4% CREAM 57 GM TUBE ONE (11:58)
== END 2021-09-29 23:59 | disposition home health service (06) ==
LOC: WOU 10:31
PROVIDERS: ATTEND Podiatrist Foot & Ankle Surgery
DX: L89.624 Pressure ulcer of left heel, stage 4 (principal); T81.89XA Other complications of procedures, not elsewhere classified, initial encounter; I87.2 Venous insufficiency (chronic) (peripheral); I10 Essential (primary) hypertension; M06.9 Rheumatoid arthritis, unspecified; Z79.899 Other long term (current) drug therapy
CPT/HCPCS: 11043; A6210; A6407

== ENCOUNTER 2021-10-06 10:40 | Outpatient (CLI) | payer MEDICARE, BC ==
[2021-10-06] MEDS ORDERED: LIDOCAINE SOLN 4% 50 ML BOTTLE ONE (11:27)
== END 2021-10-06 23:59 | disposition home health service (06) ==
LOC: WOU 10:40
PROVIDERS: ATTEND Podiatrist Foot & Ankle Surgery
DX: L89.624 Pressure ulcer of left heel, stage 4 (principal); I87.2 Venous insufficiency (chronic) (peripheral); L97.325 Non-pressure chronic ulcer of left ankle with muscle involvement without evidence of necrosis; T81.89XS Other complications of procedures, not elsewhere classified, sequela; Z96.651 Presence of right artificial knee joint; I10 Essential (primary) hypertension; M06.9 Rheumatoid arthritis, unspecified
CPT/HCPCS: 11043

== ENCOUNTER 2021-10-13 10:30 | Outpatient (CLI) | payer MEDICARE, BC | END 2021-10-13 23:59 | disposition home health service (06) | LOC: WOU 10:30 | PROVIDERS: ATTEND Podiatrist Foot & Ankle Surgery | DX: L89.624 Pressure ulcer of left heel, stage 4 (principal); T81.89XA Other complications of procedures, not elsewhere classified, initial encounter; I87.2 Venous insufficiency (chronic) (peripheral); M06.9 Rheumatoid arthritis, unspecified; I10 Essential (primary) hypertension | CPT/HCPCS: 11042 ==

== ENCOUNTER 2021-10-20 11:00 | Outpatient (CLI) | payer MEDICARE, BC ==
[2021-10-20] MEDS ORDERED: LIDOCAINE SOLN 4% 50 ML BOTTLE ONE (11:06)
== END 2021-10-20 23:59 | disposition home health service (06) ==
LOC: WOU 11:00
PROVIDERS: ATTEND Podiatrist Foot & Ankle Surgery
DX: L89.624 Pressure ulcer of left heel, stage 4 (principal); T81.89XA Other complications of procedures, not elsewhere classified, initial encounter; I87.2 Venous insufficiency (chronic) (peripheral)
CPT/HCPCS: 11043; 11042; A6210

== ENCOUNTER 2021-10-27 10:30 | Outpatient (CLI) | payer MEDICARE, BC | END 2021-10-27 23:59 | disposition home health service (06) | LOC: WOU 10:30 | PROVIDERS: ATTEND Podiatrist Foot & Ankle Surgery | DX: L89.624 Pressure ulcer of left heel, stage 4 (principal); T81.89XD Other complications of procedures, not elsewhere classified, subsequent encounter; L03.116 Cellulitis of left lower limb; I87.2 Venous insufficiency (chronic) (peripheral); M06.9 Rheumatoid arthritis, unspecified; I10 Essential (primary) hypertension | CPT/HCPCS: 11042; 11043; 87070-TC; 87075-TC; 87186-TC ==

== ENCOUNTER 2021-11-07 10:09 | Outpatient (CLI) | payer MEDICARE, BC ==
[2021-11-07] MEDS ORDERED: LIDOCAINE SOLN 4% 50 ML BOTTLE ONE (10:23)
[2021-11-07] MEDS ORDERED: GENTAMICIN 0.1% CREAM 15 GM TUBE ONE (10:55)
== END 2021-11-07 23:59 | disposition home health service (06) ==
LOC: WOU 10:09
PROVIDERS: ATTEND Surgery
DX: L89.624 Pressure ulcer of left heel, stage 4 (principal); T81.89XA Other complications of procedures, not elsewhere classified, initial encounter; L03.116 Cellulitis of left lower limb; I87.2 Venous insufficiency (chronic) (peripheral); Z96.651 Presence of right artificial knee joint; I10 Essential (primary) hypertension
CPT/HCPCS: 11043; A6197

== ENCOUNTER 2021-11-09 10:30 | Outpatient (CLI) | payer MEDICARE, BC ==
[2021-11-09] MEDS ORDERED: LIDOCAINE SOLN 4% 50 ML BOTTLE ONE (10:50)
[2021-11-09] MEDS ORDERED: GENTAMICIN 0.1% CREAM 15 GM TUBE ONE (11:32)
== END 2021-11-09 23:59 | disposition home health service (06) ==
LOC: WOU 10:30
PROVIDERS: ATTEND Specialist
DX: Z01.818 Encounter for other preprocedural examination (principal); T81.89XD Other complications of procedures, not elsewhere classified, subsequent encounter; S86.09 Other specified injury of Achilles tendon; X58.XXXS Exposure to other specified factors, sequela; L89.624 Pressure ulcer of left heel, stage 4; I87.2 Venous insufficiency (chronic) (peripheral); L03.116 Cellulitis of left lower limb
CPT/HCPCS: 87077; 87070; 87186; G0463

== ENCOUNTER 2021-11-17 10:29 | Outpatient (CLI) | payer MEDICARE, BC ==
[2021-11-17] MEDS ORDERED: LIDOCAINE SOLN 4% 50 ML BOTTLE ONE (10:35)
[2021-11-17] MEDS ORDERED: Z GUARD REMEDY 4 OZ OINT TP ONE (11:22)
== END 2021-11-17 23:59 | disposition home health service (06) ==
LOC: WOU 10:29
PROVIDERS: ATTEND Podiatrist Foot & Ankle Surgery
DX: L89.623 Pressure ulcer of left heel, stage 3 (principal); T81.89XA Other complications of procedures, not elsewhere classified, initial encounter; L03.116 Cellulitis of left lower limb; S86.092D Other specified injury of left Achilles tendon, subsequent encounter; X58.XXXD Exposure to other specified factors, subsequent encounter; I87.2 Venous insufficiency (chronic) (peripheral); M06.9 Rheumatoid arthritis, unspecified; I10 Essential (primary) hypertension
CPT/HCPCS: 11043; 11042; A6407; A6197

== ENCOUNTER 2021-11-24 10:45 | Outpatient (CLI) | payer MEDICARE, BC ==
[2021-11-24] MEDS ORDERED: GENTAMICIN 0.1% CREAM 15 GM TUBE ONE (11:11)
[2021-11-24] MEDS ORDERED: COLLAGENASE 5 GM TUBE UD TP ONE (11:25)
[2021-11-24] MEDS ORDERED: HYDROCORTISONE 1% CREAM 28.35 GM TUBE TP ONE (11:25)
== END 2021-11-24 23:59 | disposition home health service (06) ==
LOC: WOU 10:45
PROVIDERS: ATTEND Podiatrist Foot & Ankle Surgery
DX: T81.89XA Other complications of procedures, not elsewhere classified, initial encounter (principal); L89.624 Pressure ulcer of left heel, stage 4; I87.2 Venous insufficiency (chronic) (peripheral)
CPT/HCPCS: 11043; 11046; 87077; 87075; 87070; 87186; A6407

== ENCOUNTER 2021-11-24 14:00 | Outpatient (CLI) | payer MEDICARE, BC | END 2021-11-24 23:59 | disposition home or self-care (01) | LOC: WOU 14:00 | PROVIDERS: ATTEND Registered Nurse | DX: L08.89 Other specified local infections of the skin and subcutaneous tissue (principal); B96.5 Pseudomonas (aeruginosa) (mallei) (pseudomallei) as the cause of diseases classified elsewhere; B95.61 Methicillin susceptible Staphylococcus aureus infection as the cause of diseases classified elsewhere; Z16.30 Resistance to unspecified antimicrobial drugs; L97.329 Non-pressure chronic ulcer of left ankle with unspecified severity; I10 Essential (primary) hypertension; K21.9 Gastro-esophageal reflux disease without esophagitis; G89.4 Chronic pain syndrome; G43.909 Migraine, unspecified, not intractable, without status migrainosus; F41.8 Other specified anxiety disorders | CPT/HCPCS: G0463 ==

== ENCOUNTER 2021-11-30 10:15 | Outpatient (CLI) | payer MEDICARE, BC | END 2021-11-30 23:59 | disposition home or self-care (01) | LOC: WOU 10:15 | PROVIDERS: ATTEND Nurse Practitioner Acute Care | DX: Z45.2 Encounter for adjustment and management of vascular access device (principal); L08.9 Local infection of the skin and subcutaneous tissue, unspecified; Z79.2 Long term (current) use of antibiotics | CPT/HCPCS: 71045-TC ==

== ENCOUNTER → 2021-12-01 | Outpatient (CLI) | payer MEDICARE, BC ==
[~2021-12-01] MED LIST changes: +HYDROCORTISONE 1% CREAM 28.35 GM TUBE TP ONE
== END | disposition home health service (06) ==
LOC: WOU 10:30
PROVIDERS: ATTEND Podiatrist Foot & Ankle Surgery
DX: T81.89XA Other complications of procedures, not elsewhere classified, initial encounter (principal); L89.624 Pressure ulcer of left heel, stage 4; L89.524 Pressure ulcer of left ankle, stage 4; I87.2 Venous insufficiency (chronic) (peripheral); Z96.651 Presence of right artificial knee joint; I10 Essential (primary) hypertension; L03.116 Cellulitis of left lower limb
CPT/HCPCS: 11043; A6407

== ENCOUNTER 2021-12-08 11:07 | Outpatient (CLI) | payer MEDICARE, BC ==
[~2021-12-08 11:07] MED LIST changes: -HYDROCORTISONE 1% CREAM 28.35 GM TUBE TP ONE
[2021-12-08] MEDS ORDERED: LIDOCAINE SOLN 4% 50 ML BOTTLE ONE (11:13)
[2021-12-08] MEDS ORDERED: GENTAMICIN 0.1% CREAM 15 GM TUBE ONE (12:22)
[2021-12-08] MEDS ORDERED: COLLAGENASE 5 GM TUBE UD TP ONE (12:23)
[2021-12-08] MEDS ORDERED: HYDROCORTISONE 1% CREAM 28.35 GM TUBE TP ONE (12:23)
== END 2021-12-08 23:59 | disposition home health service (06) ==
LOC: WOU 11:07
PROVIDERS: ATTEND Podiatrist Foot & Ankle Surgery
DX: T81.89XA Other complications of procedures, not elsewhere classified, initial encounter (principal); L89.624 Pressure ulcer of left heel, stage 4; L89.524 Pressure ulcer of left ankle, stage 4; L03.116 Cellulitis of left lower limb; I87.2 Venous insufficiency (chronic) (peripheral)
CPT/HCPCS: 11043; A6197; A6407

== ENCOUNTER 2021-12-12 09:19 | Outpatient (CLI) | payer MEDICARE, BC ==
[2021-12-12] MEDS ORDERED: LIDOCAINE SOLN 4% 50 ML BOTTLE ONE (09:36)
[2021-12-12] MEDS ORDERED: HYDROCORTISONE 1% CREAM 28.35 GM TUBE TP ONE (10:23)
== END 2021-12-12 23:59 | disposition home health service (06) ==
LOC: WOU 09:19
PROVIDERS: ATTEND Podiatrist Foot & Ankle Surgery
DX: L89.624 Pressure ulcer of left heel, stage 4 (principal); L89.524 Pressure ulcer of left ankle, stage 4; T81.89XA Other complications of procedures, not elsewhere classified, initial encounter; S86.092D Other specified injury of left Achilles tendon, subsequent encounter; X58.XXXD Exposure to other specified factors, subsequent encounter; I87.2 Venous insufficiency (chronic) (peripheral); Z96.651 Presence of right artificial knee joint
CPT/HCPCS: 11043; 11042; A6197

== ENCOUNTER 2021-12-15 10:28 | Outpatient (CLI) | payer MEDICARE, BC ==
[2021-12-15] MEDS ORDERED: HYDROCORTISONE 1% CREAM 28.35 GM TUBE TP ONE (11:57)
== END 2021-12-15 23:59 | disposition home health service (06) ==
LOC: WOU 10:28
PROVIDERS: ATTEND Podiatrist Foot & Ankle Surgery
DX: L89.524 Pressure ulcer of left ankle, stage 4 (principal); L89.623 Pressure ulcer of left heel, stage 3; T81.89XA Other complications of procedures, not elsewhere classified, initial encounter; I87.2 Venous insufficiency (chronic) (peripheral); M06.9 Rheumatoid arthritis, unspecified; I10 Essential (primary) hypertension
CPT/HCPCS: 11043; 11042; A6407

== ENCOUNTER 2021-12-17 13:18 | Outpatient (CLI) | payer MEDICARE, BC | END 2021-12-17 23:59 | disposition home or self-care (01) | LOC: WOU 13:18 | PROVIDERS: ATTEND Nurse Practitioner Acute Care | DX: Z45.2 Encounter for adjustment and management of vascular access device (principal); Z79.2 Long term (current) use of antibiotics | CPT/HCPCS: 71045-TC ==

== ENCOUNTER 2021-12-22 10:30 | Outpatient (CLI) | payer MEDICARE, BC ==
[2021-12-22] MEDS ORDERED: LIDOCAINE SOLN 4% 50 ML BOTTLE ONE (10:37)
[2021-12-22] MEDS ORDERED: UREA 10% -AHA 4% CREAM 57 GM TUBE ONE (11:11)
[2021-12-22] MEDS ORDERED: HYDROCORTISONE 1% CREAM 28.35 GM TUBE TP ONE (11:11)
[2021-12-22] MEDS ORDERED: MUPIROCIN 2% CREAM 15 GM TUBE TP ONE (11:31)
[2021-12-22] MEDS ORDERED: GENTAMICIN 0.1% CREAM 15 GM TUBE ONE (11:31)
== END 2021-12-22 23:59 | disposition home health service (06) ==
LOC: WOU 10:30
PROVIDERS: ATTEND Podiatrist Foot & Ankle Surgery
DX: L89.624 Pressure ulcer of left heel, stage 4 (principal); L89.524 Pressure ulcer of left ankle, stage 4; L03.116 Cellulitis of left lower limb; T81.89XA Other complications of procedures, not elsewhere classified, initial encounter; S86.09 Other specified injury of Achilles tendon; X58.XXXS Exposure to other specified factors, sequela; I87.2 Venous insufficiency (chronic) (peripheral)
CPT/HCPCS: 11043; 11042; A6407

== ENCOUNTER 2021-12-26 10:39 | Outpatient (CLI) | payer MEDICARE, BC ==
[2021-12-26] MEDS ORDERED: LIDOCAINE SOLN 4% 50 ML BOTTLE ONE (10:45)
[2021-12-26] MEDS ORDERED: GENTAMICIN 0.1% CREAM 15 GM TUBE ONE (10:46)
[2021-12-26] MEDS ORDERED: MUPIROCIN 2% CREAM 15 GM TUBE TP ONE (10:46)
== END 2021-12-26 23:59 | disposition home health service (06) ==
LOC: WOU 10:39
PROVIDERS: ATTEND Podiatrist Foot & Ankle Surgery
DX: L89.624 Pressure ulcer of left heel, stage 4 (principal); L89.524 Pressure ulcer of left ankle, stage 4; T81.89XA Other complications of procedures, not elsewhere classified, initial encounter; I87.2 Venous insufficiency (chronic) (peripheral); L03.116 Cellulitis of left lower limb; I10 Essential (primary) hypertension; M06.9 Rheumatoid arthritis, unspecified
CPT/HCPCS: 11043; 11046; A6197

== ENCOUNTER 2022-01-02 10:35 | Outpatient (CLI) | payer MEDICARE, BC ==
[2022-01-02] MEDS ORDERED: LIDOCAINE SOLN 4% 50 ML BOTTLE ONE (10:45)
[2022-01-02] MEDS ORDERED: GENTAMICIN 0.1% CREAM 15 GM TUBE ONE (11:18)
== END 2022-01-02 23:59 | disposition home health service (06) ==
LOC: WOU 10:35
PROVIDERS: ATTEND Podiatrist Foot & Ankle Surgery
DX: T81.89XA Other complications of procedures, not elsewhere classified, initial encounter (principal); L89.624 Pressure ulcer of left heel, stage 4; I87.2 Venous insufficiency (chronic) (peripheral); L03.116 Cellulitis of left lower limb; I10 Essential (primary) hypertension
CPT/HCPCS: 15275; 11043; Q4158 ×2; A6407

== ENCOUNTER 2022-01-02 13:44 | Outpatient (CLI) | payer MEDICARE, BC | END 2022-01-02 23:59 | disposition home or self-care (01) | LOC: XR 13:44 | PROVIDERS: ATTEND Podiatrist Foot & Ankle Surgery | DX: M77.32 Calcaneal spur, left foot (principal) | CPT/HCPCS: 73630-TC; 73650-TC ==

== ENCOUNTER 2022-01-09 10:40 | Outpatient (CLI) | payer MEDICARE, BC ==
[2022-01-09] MEDS ORDERED: GENTAMICIN 0.1% CREAM 15 GM TUBE ONE (11:12)
== END 2022-01-09 23:59 | disposition home health service (06) ==
LOC: WOU 10:40
PROVIDERS: ATTEND Podiatrist Foot & Ankle Surgery
DX: T81.89XA Other complications of procedures, not elsewhere classified, initial encounter (principal); L89.624 Pressure ulcer of left heel, stage 4; I87.2 Venous insufficiency (chronic) (peripheral); M06.9 Rheumatoid arthritis, unspecified; I10 Essential (primary) hypertension
CPT/HCPCS: 15271; 11043; Q4158 ×2; A6407

== ENCOUNTER 2022-01-16 10:06 | Outpatient (CLI) | payer MEDICARE, BC ==
[2022-01-16] MEDS ORDERED: LIDOCAINE SOLN 4% 50 ML BOTTLE ONE (10:12)
[2022-01-16] MEDS ORDERED: Z GUARD REMEDY 4 OZ OINT TP ONE (10:37)
[2022-01-16] MEDS ORDERED: GENTAMICIN 0.1% CREAM 15 GM TUBE ONE (10:40)
[2022-01-16] MEDS ORDERED: UREA 10% -AHA 4% CREAM 57 GM TUBE ONE (10:42)
== END 2022-01-16 23:59 | disposition home health service (06) ==
LOC: WOU 10:06
PROVIDERS: ATTEND Podiatrist Foot & Ankle Surgery
DX: T81.89XA Other complications of procedures, not elsewhere classified, initial encounter (principal); L89.624 Pressure ulcer of left heel, stage 4; S90.425A Blister (nonthermal), left lesser toe(s), initial encounter; X58.XXXA Exposure to other specified factors, initial encounter; Y92.89 Other specified places as the place of occurrence of the external cause; I10 Essential (primary) hypertension
CPT/HCPCS: 15271; 11043; Q4158 ×2; A6407; A6207

== ENCOUNTER 2022-02-02 10:00 | Outpatient (CLI) | payer MEDICARE, BC ==
[2022-02-02] MEDS ORDERED: LIDOCAINE SOLN 4% 50 ML BOTTLE ONE (10:32)
[2022-02-02] MEDS ORDERED: GENTAMICIN 0.1% CREAM 15 GM TUBE ONE (10:49)
== END 2022-02-02 23:59 | disposition home health service (06) ==
LOC: WOU 10:00
PROVIDERS: ATTEND Podiatrist Foot & Ankle Surgery
DX: L89.624 Pressure ulcer of left heel, stage 4 (principal); T81.89XA Other complications of procedures, not elsewhere classified, initial encounter; S90.425D Blister (nonthermal), left lesser toe(s), subsequent encounter; X58.XXXD Exposure to other specified factors, subsequent encounter; I87.2 Venous insufficiency (chronic) (peripheral); M06.9 Rheumatoid arthritis, unspecified; I10 Essential (primary) hypertension
CPT/HCPCS: 11043; A6407; A6197; A6209

== ENCOUNTER 2022-02-09 10:05 | Outpatient (CLI) | payer MEDICARE, BC ==
[2022-02-09] MEDS ORDERED: GENTAMICIN 0.1% CREAM 15 GM TUBE ONE (10:47)
== END 2022-02-09 23:59 | disposition home health service (06) ==
LOC: WOU 10:05
PROVIDERS: ATTEND Podiatrist Foot & Ankle Surgery
DX: L89.624 Pressure ulcer of left heel, stage 4 (principal); T81.89XA Other complications of procedures, not elsewhere classified, initial encounter; I87.2 Venous insufficiency (chronic) (peripheral); I10 Essential (primary) hypertension
CPT/HCPCS: 15271; 11043; Q4158; A6407

== ENCOUNTER 2022-02-16 10:18 | Outpatient (CLI) | payer MEDICARE, BC ==
[2022-02-16] MEDS ORDERED: LIDOCAINE SOLN 4% 50 ML BOTTLE ONE (10:51)
== END 2022-02-16 23:59 | disposition home health service (06) ==
LOC: WOU 10:18
PROVIDERS: ATTEND Podiatrist Foot & Ankle Surgery
DX: T81.89XA Other complications of procedures, not elsewhere classified, initial encounter (principal); L89.624 Pressure ulcer of left heel, stage 4; I87.2 Venous insufficiency (chronic) (peripheral)
CPT/HCPCS: 15275; 11043; Q4158; A6407

== ENCOUNTER 2022-02-27 11:00 | Outpatient (CLI) | payer MEDICARE, BC ==
[~2022-02-27 11:00] MED LIST changes: +GENTAMICIN 0.1% CREAM 15 GM TUBE ONE; +HYDROCORTISONE 1% CREAM 28.35 GM TUBE TP ONE; +LIDOCAINE SOLN 4% 50 ML BOTTLE ONE; +TRIAMCINOLONE ACETONIDE 0.1% CR 15 GM TUBE TP ONE
== END 2022-02-27 23:59 | disposition home health service (06) ==
LOC: WOU 11:00
PROVIDERS: ATTEND Podiatrist Foot & Ankle Surgery
DX: T81.89XD Other complications of procedures, not elsewhere classified, subsequent encounter (principal); L89.624 Pressure ulcer of left heel, stage 4; I87.2 Venous insufficiency (chronic) (peripheral); I10 Essential (primary) hypertension
CPT/HCPCS: 15271; 11043; Q4158; A6407

== ENCOUNTER → 2022-03-06 | Outpatient (CLI) | payer MEDICARE, BC ==
[~2022-03-06] MED LIST changes: +CADEXOMER IODINE UD 5 GM TUBE ONE; -GENTAMICIN 0.1% CREAM 15 GM TUBE ONE; -HYDROCORTISONE 1% CREAM 28.35 GM TUBE TP ONE; -TRIAMCINOLONE ACETONIDE 0.1% CR 15 GM TUBE TP ONE
== END | disposition home health service (06) ==
LOC: WOU 10:00
PROVIDERS: ATTEND Podiatrist Foot & Ankle Surgery
DX: L89.624 Pressure ulcer of left heel, stage 4 (principal); T81.89XA Other complications of procedures, not elsewhere classified, initial encounter; I87.2 Venous insufficiency (chronic) (peripheral)
CPT/HCPCS: 15271; 11043; Q4158

== ENCOUNTER 2022-03-13 10:00 | Outpatient (CLI) | payer MEDICARE, BC ==
[~2022-03-13 10:00] MED LIST changes: -CADEXOMER IODINE UD 5 GM TUBE ONE; -LIDOCAINE SOLN 4% 50 ML BOTTLE ONE
[2022-03-13] MEDS ORDERED: LIDOCAINE SOLN 4% 50 ML BOTTLE ONE (10:37)
[2022-03-13] MEDS ORDERED: CADEXOMER IODINE UD 5 GM TUBE ONE ×2 (11:01→11:11)
[2022-03-13] MEDS ORDERED: TRIAMCINOLONE ACETONIDE 0.1% CR 15 GM TUBE TP ONE (11:02)
== END 2022-03-13 23:59 | disposition home or self-care (01) ==
LOC: WOU 10:00
PROVIDERS: ATTEND Podiatrist Foot & Ankle Surgery
DX: L89.624 Pressure ulcer of left heel, stage 4 (principal); T81.89XA Other complications of procedures, not elsewhere classified, initial encounter; L03.116 Cellulitis of left lower limb; I87.2 Venous insufficiency (chronic) (peripheral); I10 Essential (primary) hypertension; Z96.651 Presence of right artificial knee joint; M79.672 Pain in left foot
CPT/HCPCS: 11043

== ENCOUNTER 2022-03-20 10:19 | Outpatient (CLI) | payer MEDICARE, BC ==
[2022-03-20] MEDS ORDERED: CADEXOMER IODINE UD 5 GM TUBE ONE (10:30)
== END 2022-03-20 23:59 | disposition home health service (06) ==
LOC: WOU 10:19
PROVIDERS: ATTEND Podiatrist Foot & Ankle Surgery
DX: L89.624 Pressure ulcer of left heel, stage 4 (principal); T81.89XA Other complications of procedures, not elsewhere classified, initial encounter; I87.2 Venous insufficiency (chronic) (peripheral); L03.116 Cellulitis of left lower limb; I10 Essential (primary) hypertension
CPT/HCPCS: 11043

== ENCOUNTER 2022-03-21 12:00 | Outpatient (CLI) | payer MEDICARE, BC | END 2022-03-21 23:59 | disposition home or self-care (01) | LOC: WOU 12:00 | PROVIDERS: ATTEND Registered Nurse | DX: L08.9 Local infection of the skin and subcutaneous tissue, unspecified (principal); B96.1 Klebsiella pneumoniae [K. pneumoniae] as the cause of diseases classified elsewhere; B95.61 Methicillin susceptible Staphylococcus aureus infection as the cause of diseases classified elsewhere; Z16.11 Resistance to penicillins; S91.302D Unspecified open wound, left foot, subsequent encounter; X58.XXXD Exposure to other specified factors, subsequent encounter; L40.50 Arthropathic psoriasis, unspecified; I10 Essential (primary) hypertension; G89.4 Chronic pain syndrome; G25.81 Restless legs syndrome | CPT/HCPCS: G0463 ==

== ENCOUNTER 2022-04-03 10:05 | Outpatient (CLI) | payer MEDICARE, BC ==
[2022-04-03] MEDS ORDERED: LIDOCAINE SOLN 4% 50 ML BOTTLE ONE (10:22)
== END 2022-04-03 23:59 | disposition home health service (06) ==
LOC: WOU 10:05
PROVIDERS: ATTEND Podiatrist Foot & Ankle Surgery
DX: L89.624 Pressure ulcer of left heel, stage 4 (principal); T81.89XA Other complications of procedures, not elsewhere classified, initial encounter; L40.50 Arthropathic psoriasis, unspecified; I87.2 Venous insufficiency (chronic) (peripheral); L03.116 Cellulitis of left lower limb
CPT/HCPCS: 15271; 15275; Q4158

== ENCOUNTER 2022-04-10 10:11 | Outpatient (CLI) | payer MEDICARE, BC | END 2022-04-10 23:59 | disposition home health service (06) | LOC: WOU 10:11 | PROVIDERS: ATTEND Podiatrist Foot & Ankle Surgery | DX: L89.624 Pressure ulcer of left heel, stage 4 (principal); L03.116 Cellulitis of left lower limb; T81.89XA Other complications of procedures, not elsewhere classified, initial encounter; I87.2 Venous insufficiency (chronic) (peripheral); I10 Essential (primary) hypertension; M06.9 Rheumatoid arthritis, unspecified | CPT/HCPCS: 15271; 15275; Q4158 ×2 ==

== ENCOUNTER → 2022-04-17 | Outpatient (CLI) | payer MEDICARE, BC | END | disposition home or self-care (01) | LOC: WOU 11:00 | PROVIDERS: ATTEND Podiatrist Foot & Ankle Surgery | DX: Z75.3 Unavailability and inaccessibility of health-care facilities (principal) ==

== ENCOUNTER 2022-04-24 09:50 | Outpatient (CLI) | payer MEDICARE, BC ==
[2022-04-24] MEDS ORDERED: GENTAMICIN 0.1% CREAM 15 GM TUBE ONE (10:33)
== END 2022-04-24 23:59 | disposition home health service (06) ==
LOC: WOU 09:50
PROVIDERS: ATTEND Podiatrist Foot & Ankle Surgery
DX: T81.89XA Other complications of procedures, not elsewhere classified, initial encounter (principal); L89.624 Pressure ulcer of left heel, stage 4; I87.2 Venous insufficiency (chronic) (peripheral); L03.116 Cellulitis of left lower limb; I10 Essential (primary) hypertension
CPT/HCPCS: 15271; 11043; Q4158

== ENCOUNTER 2022-05-04 12:54 | Outpatient (CLI) | payer MEDICARE, BC | END 2022-05-04 23:59 | disposition home health service (06) | LOC: WOU 12:54 | PROVIDERS: ATTEND Podiatrist Foot & Ankle Surgery | DX: T81.89XA Other complications of procedures, not elsewhere classified, initial encounter (principal); L89.624 Pressure ulcer of left heel, stage 4; I87.2 Venous insufficiency (chronic) (peripheral); M06.9 Rheumatoid arthritis, unspecified | CPT/HCPCS: 15271; 11043; Q4158 ==

== ENCOUNTER 2022-05-11 10:41 | Outpatient (CLI) | payer MEDICARE, BC ==
[2022-05-11] MEDS ORDERED: TRIAMCINOLONE ACETONIDE 0.1% CR 15 GM TUBE TP ONE (11:13)
== END 2022-05-11 23:59 | disposition home health service (06) ==
LOC: WOU 10:41
PROVIDERS: ATTEND Podiatrist Foot & Ankle Surgery
DX: T81.89XA Other complications of procedures, not elsewhere classified, initial encounter (principal); L89.624 Pressure ulcer of left heel, stage 4; I87.2 Venous insufficiency (chronic) (peripheral); L03.116 Cellulitis of left lower limb; M06.9 Rheumatoid arthritis, unspecified; I10 Essential (primary) hypertension
CPT/HCPCS: 11043; 87070; A6210; A6407

== ENCOUNTER 2022-05-25 09:34 | Outpatient (CLI) | payer MEDICARE, BC | END 2022-05-25 23:59 | disposition home health service (06) | LOC: WOU 09:34 | PROVIDERS: ATTEND Podiatrist Foot & Ankle Surgery | DX: L89.624 Pressure ulcer of left heel, stage 4 (principal); I87.2 Venous insufficiency (chronic) (peripheral); T81.89XA Other complications of procedures, not elsewhere classified, initial encounter; L03.116 Cellulitis of left lower limb; I73.9 Peripheral vascular disease, unspecified; I82.402 Acute embolism and thrombosis of unspecified deep veins of left lower extremity | CPT/HCPCS: 11043; 11044; 93971-TC ==

== ENCOUNTER 2022-05-29 10:38 | Outpatient (CLI) | payer MEDICARE, BC ==
[2022-05-29] MEDS ORDERED: CADEXOMER IODINE UD 5 GM TUBE ONE (10:50)
== END 2022-05-29 23:59 | disposition home health service (06) ==
LOC: WOU 10:38
PROVIDERS: ATTEND Podiatrist Foot & Ankle Surgery
DX: L89.624 Pressure ulcer of left heel, stage 4 (principal); T81.89XA Other complications of procedures, not elsewhere classified, initial encounter; L03.116 Cellulitis of left lower limb; I87.2 Venous insufficiency (chronic) (peripheral); L40.50 Arthropathic psoriasis, unspecified
CPT/HCPCS: 11044; 11043; A6253; A6407

== ENCOUNTER 2022-06-01 11:36 | Outpatient (CLI) | payer MEDICARE, BC | END 2022-06-01 23:59 | disposition home health service (06) | LOC: WOU 11:36 | PROVIDERS: ATTEND Podiatrist Foot & Ankle Surgery | DX: L89.624 Pressure ulcer of left heel, stage 4 (principal); T81.89XA Other complications of procedures, not elsewhere classified, initial encounter; L03.116 Cellulitis of left lower limb; I87.2 Venous insufficiency (chronic) (peripheral); I10 Essential (primary) hypertension | CPT/HCPCS: 11044; 11043; A6407 ==

== ENCOUNTER 2022-06-05 10:51 | Outpatient (CLI) | payer MEDICARE, BC ==
[2022-06-05] MEDS ORDERED: CADEXOMER IODINE UD 5 GM TUBE ONE (11:26)
== END 2022-06-05 23:59 | disposition home health service (06) ==
LOC: WOU 10:51
PROVIDERS: ATTEND Podiatrist Foot & Ankle Surgery
DX: L89.624 Pressure ulcer of left heel, stage 4 (principal); T81.89XA Other complications of procedures, not elsewhere classified, initial encounter; I87.2 Venous insufficiency (chronic) (peripheral); L03.116 Cellulitis of left lower limb
CPT/HCPCS: 11043; 11044

== ENCOUNTER 2022-06-26 10:52 | Outpatient (CLI) | payer MEDICARE, BC ==
[2022-06-26] MEDS ORDERED: CADEXOMER IODINE UD 5 GM TUBE ONE (11:11)
== END 2022-06-26 23:59 | disposition home health service (06) ==
LOC: WOU 10:52
PROVIDERS: ATTEND Podiatrist Foot & Ankle Surgery
DX: L89.624 Pressure ulcer of left heel, stage 4 (principal); M86.172 Other acute osteomyelitis, left ankle and foot; T81.89XA Other complications of procedures, not elsewhere classified, initial encounter; I87.2 Venous insufficiency (chronic) (peripheral)
CPT/HCPCS: 11043

== ENCOUNTER 2022-06-29 10:20 | Outpatient (CLI) | payer MEDICARE, BC | END 2022-06-29 23:59 | disposition home health service (06) | LOC: WOU 10:20 | PROVIDERS: ATTEND Podiatrist Foot & Ankle Surgery | DX: T81.89XA Other complications of procedures, not elsewhere classified, initial encounter (principal); L89.624 Pressure ulcer of left heel, stage 4; M86.671 Other chronic osteomyelitis, right ankle and foot; I87.2 Venous insufficiency (chronic) (peripheral) | CPT/HCPCS: 15271; Q4158; A6209 ==

== ENCOUNTER 2022-07-05 11:28 | Outpatient (CLI) | payer MEDICARE, BC | END 2022-07-05 23:59 | disposition home or self-care (01) | LOC: WOU 11:28 | PROVIDERS: ATTEND Specialist | DX: Z01.818 Encounter for other preprocedural examination (principal); M86.171 Other acute osteomyelitis, right ankle and foot; I87.2 Venous insufficiency (chronic) (peripheral) | CPT/HCPCS: G0463; A6407 ==

== ENCOUNTER 2022-07-06 10:31 | Outpatient (CLI) | payer MEDICARE, BC ==
[2022-07-06] MEDS ORDERED: LIDOCAINE SOLN 4% 50 ML BOTTLE ONE (10:50)
== END 2022-07-06 23:59 | disposition home health service (06) ==
LOC: WOU 10:31
PROVIDERS: ATTEND Podiatrist Foot & Ankle Surgery
DX: T81.89XA Other complications of procedures, not elsewhere classified, initial encounter (principal); L89.624 Pressure ulcer of left heel, stage 4; M86.171 Other acute osteomyelitis, right ankle and foot; I87.2 Venous insufficiency (chronic) (peripheral)
CPT/HCPCS: 15271; Q4158; A4649

== ENCOUNTER 2022-07-13 11:47 | Outpatient (CLI) | payer MEDICARE, BC | END 2022-07-13 23:59 | disposition home health service (06) | LOC: WOU 11:47 | PROVIDERS: ATTEND Surgery | DX: T81.89XA Other complications of procedures, not elsewhere classified, initial encounter (principal); L89.624 Pressure ulcer of left heel, stage 4; M86.172 Other acute osteomyelitis, left ankle and foot; I87.2 Venous insufficiency (chronic) (peripheral); I10 Essential (primary) hypertension | CPT/HCPCS: 11043; A6209 ==

== ENCOUNTER 2022-08-28 10:17 | Outpatient (CLI) | payer MEDICARE, BC | END 2022-08-28 23:59 | disposition home health service (06) | LOC: WOU 10:17 | PROVIDERS: ATTEND Podiatrist Foot & Ankle Surgery | DX: T81.89XD Other complications of procedures, not elsewhere classified, subsequent encounter (principal); M86.672 Other chronic osteomyelitis, left ankle and foot; I87.2 Venous insufficiency (chronic) (peripheral); R26.2 Difficulty in walking, not elsewhere classified | CPT/HCPCS: 15271; Q4158 ==

== ENCOUNTER 2022-10-02 10:20 | Outpatient (CLI) | payer MEDICARE, BC ==
[2022-10-02] MEDS ORDERED: TRIAMCINOLONE ACETONIDE 0.1% CR 15 GM TUBE TP ONE (10:28)
[2022-10-02] MEDS ORDERED: CLOTRIMAZOLE 1% 15 GM TUBE TP ONE (10:30)
== END 2022-10-02 23:59 | disposition home health service (06) ==
LOC: WOU 10:20
PROVIDERS: ATTEND Podiatrist Foot & Ankle Surgery
DX: T81.89XA Other complications of procedures, not elsewhere classified, initial encounter (principal); I87.2 Venous insufficiency (chronic) (peripheral); R26.2 Difficulty in walking, not elsewhere classified; M86.672 Other chronic osteomyelitis, left ankle and foot; Z98.1 Arthrodesis status; I10 Essential (primary) hypertension; M06.9 Rheumatoid arthritis, unspecified; Z96.651 Presence of right artificial knee joint; Z79.899 Other long term (current) drug therapy
CPT/HCPCS: 11042; A4649

== ENCOUNTER 2022-10-12 10:14 | Outpatient (CLI) | payer MEDICARE, BC | END 2022-10-12 23:59 | disposition home health service (06) | LOC: WOU 10:14 | PROVIDERS: ATTEND Podiatrist Foot & Ankle Surgery | DX: T81.89XA Other complications of procedures, not elsewhere classified, initial encounter (principal); I87.2 Venous insufficiency (chronic) (peripheral); L97.322 Non-pressure chronic ulcer of left ankle with fat layer exposed; M86.672 Other chronic osteomyelitis, left ankle and foot; R26.2 Difficulty in walking, not elsewhere classified; I10 Essential (primary) hypertension; M06.9 Rheumatoid arthritis, unspecified | CPT/HCPCS: 11042; A4649 ==

== ENCOUNTER 2022-10-26 10:19 | Outpatient (CLI) | payer MEDICARE, BC ==
[2022-10-26] MEDS ORDERED: TRIAMCINOLONE ACETONIDE 0.1% CR 15 GM TUBE TP ONE (10:38)
== END 2022-10-26 23:59 | disposition home health service (06) ==
LOC: WOU 10:19
PROVIDERS: ATTEND Podiatrist Foot & Ankle Surgery
DX: T81.89XA Other complications of procedures, not elsewhere classified, initial encounter (principal); I87.2 Venous insufficiency (chronic) (peripheral); M86.672 Other chronic osteomyelitis, left ankle and foot; S91.012A Laceration without foreign body, left ankle, initial encounter; X58.XXXA Exposure to other specified factors, initial encounter; Y92.89 Other specified places as the place of occurrence of the external cause; R26.2 Difficulty in walking, not elsewhere classified; M06.9 Rheumatoid arthritis, unspecified; I10 Essential (primary) hypertension
CPT/HCPCS: 11042; A4649

== ENCOUNTER 2022-11-09 10:14 | Outpatient (CLI) | payer MEDICARE, BC ==
[2022-11-09] MEDS ORDERED: BACI/NEOM/POLY B OINT PKT 1 UDPKT PACKET ONE (10:52)
== END 2022-11-09 23:59 | disposition home health service (06) ==
LOC: WOU 10:14
PROVIDERS: ATTEND Podiatrist Foot & Ankle Surgery
DX: S91.012D Laceration without foreign body, left ankle, subsequent encounter (principal); X58.XXXD Exposure to other specified factors, subsequent encounter; I87.2 Venous insufficiency (chronic) (peripheral); L97.322 Non-pressure chronic ulcer of left ankle with fat layer exposed; M86.672 Other chronic osteomyelitis, left ankle and foot; R26.2 Difficulty in walking, not elsewhere classified; L84 Corns and callosities
CPT/HCPCS: G0463; A4649

== ENCOUNTER → 2023-08-27 | Emergency (ER) | payer MEDICARE, BC ==
[~2023-08-27] VITALS: Ht 175.3 cm; Wt 93.0 kg
[2023-08-27 12:01] LABS: BASOPHILS # (AUTO) 0.1 K/uL (0.0-0.2); BASOPHILS % (AUTO) 0.8 % (0.0-2.0); EOSINOPHILS # (AUTO) 0.2 K/uL (0.0-0.7); EOSINOPHILS % (AUTO) 2.8 % (0.0-6.0); HEMATOCRIT 33 % (33-45); HEMOGLOBIN 10.8 g/dL (11.5-14.8); LYMPHOCYTES % (AUTO) 11.4 % (20.0-44.0); MEAN CORPUSCULAR HEMOGLOBIN 28 PG (26.0-33.0); MEAN CORPUSCULAR HGB CONC 33 g/dl (31.0-36.0); MEAN CORPUSCULAR VOLUME 85 fL (82-100); MONOCYTES # (AUTO) 0.9 K/uL (0.1-1.30); MONOCYTES % (AUTO) 10.4 % (2.0-12.0); NEUTROPHILS # (AUTO) 6.4 K/uL (1.8-8.9); NEUTROPHILS % (AUTO) 74.6 % (43.0-81.0); PLATELET COUNT (AUTO) 367 K/uL (150-450); RED BLOOD CELL COUNT(AUTO) 3.91 MIL/uL (4.0-5.2); RED CELL DISTRIBUTION WIDTH 14.2 % (11.5-15.0); WHITE BLOOD COUNT (AUTO) 8.6 K/uL (4.3-11.0)
[2023-08-27 12:08] LABS: CALCIUM, SERUM 9.5 mg/dL (8.5-10.1); CARBON DIOXIDE 29 mmol/L (21-32); CHLORIDE 102 mmol/L (98-107); CREATININE 1.6 mg/dL (0.6-1.3); GLUCOSE 96 mg/dL (74-106); POTASSIUM 4.9 mmol/L (3.5-5.1); SODIUM SERUM 134 mmol/L (136-145); UREA NITROGEN, BLOOD 27 mg/dL (7-18)
[2023-08-27 14:12] VITALS: BP 140/78; TEMP 98.7; O2SAT 100
== END | disposition home or self-care (01) ==
LOC: ER 11:30
DX: R22.41 Localized swelling, mass and lump, right lower limb (principal); M79.604 Pain in right leg; I10 Essential (primary) hypertension; K21.9 Gastro-esophageal reflux disease without esophagitis; Z79.1 Long term (current) use of non-steroidal anti-inflammatories (NSAID); Z98.890 Other specified postprocedural states; Z79.899 Other long term (current) drug therapy; Z79.891 Long term (current) use of opiate analgesic
CPT/HCPCS: 36415; 80048-TC; 85025-TC; 93970-TC

== ENCOUNTER 2023-10-01 10:51 | Outpatient (CLI) | payer MEDICARE, BC ==
[2023-10-01] MEDS ORDERED: LIDOCAINE SOLN 4% 50 ML BOTTLE ONE (11:27)
[2023-10-01] MEDS ORDERED: COLLAGENASE 5 GM TUBE UD TP ONE (12:15)
== END 2023-10-01 23:59 | disposition home health service (06) ==
LOC: WOU 10:51
PROVIDERS: ATTEND Student in an Organized Health Care Education/Training Program
DX: I87.313 Chronic venous hypertension (idiopathic) with ulcer of bilateral lower extremity (principal); L97.322 Non-pressure chronic ulcer of left ankle with fat layer exposed; L97.312 Non-pressure chronic ulcer of right ankle with fat layer exposed; L97.812 Non-pressure chronic ulcer of other part of right lower leg with fat layer exposed; M79.604 Pain in right leg; R60.0 Localized edema; L30.9 Dermatitis, unspecified
CPT/HCPCS: 11042; 11045

== ENCOUNTER 2024-06-09 13:53 | Outpatient (CLI) | payer MEDICARE, BC ==
[~2024-06-09 13:53] MED LIST changes: +CADEXOMER IODINE UD 5 GM TUBE ONE
== END 2024-06-09 23:59 | disposition home or self-care (01) ==
LOC: WOU 13:53
PROVIDERS: ATTEND Student in an Organized Health Care Education/Training Program
DX: S91.012A Laceration without foreign body, left ankle, initial encounter (principal); S91.114A Laceration without foreign body of right lesser toe(s) without damage to nail, initial encounter; X58.XXXA Exposure to other specified factors, initial encounter; Y92.89 Other specified places as the place of occurrence of the external cause; M20.41 Other hammer toe(s) (acquired), right foot
CPT/HCPCS: 11043

== ENCOUNTER 2024-11-10 10:44 | Outpatient (CLI) | payer MEDICARE, BC ==
[~2024-11-10 10:44] MED LIST changes: -CADEXOMER IODINE UD 5 GM TUBE ONE
== END 2024-11-10 23:59 | disposition home health service (06) ==
LOC: WOU 10:44
PROVIDERS: ATTEND Student in an Organized Health Care Education/Training Program
DX: S91.114A Laceration without foreign body of right lesser toe(s) without damage to nail, initial encounter (principal); X58.XXXA Exposure to other specified factors, initial encounter; Y92.89 Other specified places as the place of occurrence of the external cause
CPT/HCPCS: 11042; 11056

== ENCOUNTER 2024-12-29 09:50 | Outpatient (CLI) | payer MEDICARE, BC ==
[2024-12-29] MEDS ORDERED: CADEXOMER IODINE UD 5 GM TUBE ONE (10:26)
== END 2024-12-29 23:59 | disposition home health service (06) ==
LOC: WOU 09:50
PROVIDERS: ATTEND Student in an Organized Health Care Education/Training Program
DX: S91.114A Laceration without foreign body of right lesser toe(s) without damage to nail, initial encounter (principal); S91.012A Laceration without foreign body, left ankle, initial encounter; X58.XXXA Exposure to other specified factors, initial encounter; Y92.89 Other specified places as the place of occurrence of the external cause
CPT/HCPCS: 11042; 11043

== ENCOUNTER 2025-01-12 10:39 | Outpatient (CLI) | payer MEDICARE, BC ==
[2025-01-12] MEDS ORDERED: CADEXOMER IODINE UD 5 GM TUBE ONE (11:02)
[2025-01-12] MEDS ORDERED: COLLAGENASE 5 GM TUBE UD TP ONE (11:02)
== END 2025-01-12 23:59 | disposition home health service (06) ==
LOC: WOU 10:39
PROVIDERS: ATTEND Student in an Organized Health Care Education/Training Program
DX: S91.012A Laceration without foreign body, left ankle, initial encounter (principal); X58.XXXA Exposure to other specified factors, initial encounter; Y92.89 Other specified places as the place of occurrence of the external cause
CPT/HCPCS: 11042; 11043